=== PATIENT | female | born 1925 | race Caucasian/White ===

== ENCOUNTER 2016-07-25 10:04 | Emergency (ER) | payer MEDICARE, OTHER ==
[~2016-07-25] VITALS: Ht 162.6 cm; Wt 54.1 kg
[2016-07-25 10:05] VITALS: TEMP 97.7; Ht 162.6 cm; Wt 54.1 kg
--- OUTSIDE RECORDS SUMMARY | 2016-07-25 10:09 | XMS REPORT | Referral Summary ---
Author Author [facility] Organization [facility] Address Unknown Phone Unavailable Care Team Providers Care Correctional Casework Specialist Name Role Phone Vladislav Fisher Primary Care Physician [phone] Encounter VC Date(s): 08/27/15 - 08/27/15 [facility], [address] [place] [address] Discharge Diagnosis: Memory loss Discharge Diagnosis: Weight loss, unintentional Discharge Diagnosis: Abdominal pain Discharge Disposition: 01-Home or Self Care Attending Physician: Jaclyn Fisher DO Vital Signs Most recent to 1 oldest [Reference Range]: Peripheral Pulse 72 bpm Rate [60-100 bpm] (08/27/15 1:23 PM) Respiratory Rate 18 br/min [14-20 br/min] (08/27/15 1:23 PM) Blood Pressure 144/90 mmHg [90-140/60-90 mmHg] *HI* (08/27/15 1:23 PM) SpO2 92 % (08/27/15 1:23 PM) Problem List Condition Effective Dates Status Health Status Informant Atrial Active fibrillation(Confirm ed) Pacemaker(Confirmed) Active Chronic hepatitis Active C(Confirmed) CHF (congestive Active heart failure)(Confirmed) CAD (coronary artery Active disease)(Confirmed) Depression(Confirmed Active ) Diarrhea(Confirmed) Active Gall bladder Active disease(Confirmed) Environmental Active allergies(Confirmed) Glaucoma(Confirmed) Active Warfarin Active anticoagulation(Conf irmed) Hx of Active cholecystectomy(Conf irmed) Personal history of Active breast cancer(Confirmed) Hypertension(Confirm Active ed) Cancer of the skin, Active basal cell(Confirmed) Memory Active impairment(Confirmed ) Osteoarthritis(Confi Active rmed) Primary biliary Active cirrhosis(Confirmed) Keratosis, Active seborrheic(Confirmed ) Weight loss, Active unintentional(Confir med) Allergies, Adverse Reactions, Alerts No Known Medication Allergies Medications atenolol 25 mg oral tablet 25 mg 1 tabs, Oral, BID, # 180 tabs, 3 Refill(s), Pharmacy: [id number], 1 tabs Oral BID Start Date: 02/05/15 Status: Ordered digoxin 125 mcg (0.125 mg) oral tablet 125 mcg 1 tabs, Oral, Daily, # 30 tabs, 0 Refill(s) Start Date: 01/26/15 Status: Ordered nystatin 100,000 units/g topical cream 1 janel, Topical, BID, # 30 g, 1 Refill(s), Pharmacy: [facility] #[id number] Start Date: 05/26/15 Status: Ordered ursodiol 250 mg oral tablet 250 mg 1 tabs, Oral, BID, with food, # 270 tabs, 3 Refill(s), [facility] [id number], 1 tabs Oral TID,Instr:with food Start Date: 02/05/15 Status: Ordered warfarin 2.5 mg oral tablet 2.5 mg 1 tabs, Oral, Daily, # 30 tabs, 6 Refill(s), Pharmacy: [facility] # [id number], 1 tabs Oral Daily Start Date: 08/03/15 Status: Ordered Results Coagulation Most recent to 1 oldest [Reference Range]: PT Venous (08/27/15 2:02 PM) INR [0.8-1.2] 2.5 1 *HI* (08/27/15 2:02 PM) 1Result Comment: Normal (no anticoagulant): 0.8 - 1.2 Units Routine Therapeutic Range: 2.0 - 3.0 Units High Risk Therapeutic Range: 2.5 - 3.5 Units Immunizations No data available for this section Procedures Procedure Date Related Diagnosis Body Site Biopsy of liver Cataract extraction Pacemaker Tonsillectomy and adenoidectomy Social History Social History Type Response Smoking Status Never smoker Assessment and Plan Extracted from: Title: Office Visit Note Author: Jaclyn Fisher DO Date: 08/27/15 Assessment/Plan Abdominal pain We discussed the patient should try the probiotic and if this does not help she can trysome Zantac to see if that will help with things. We discussed that we can't say for sure what's happening and that she does not wish to pursue any further investigation. She can try some heat on her abdomen if it is particularly bothersome to see if that would help. We discussed maintaining a healthy diet. Ordered: Office Visit Level 4 Est 64303 Afib PT/INR today. Continue current medication regimen. Ordered: Office Visit Level 4 Est 10893 Memory loss We discussed Aricept or Namenda. They will discuss with family and let us know if they would like to initiate one of these medications. If they would like to initiate one of these medications we will see them 6 weeks after starting the medicine. Ordered: Office Visit Level 4 Est 23262 Weight loss, unintentional This has seemed to stabilize. Continue working on diet. Return to clinic in 6 months. Ordered: Office Visit Level 4 Est 88236
--- OUTSIDE RECORDS SUMMARY | 2016-07-25 10:09 | XMS REPORT | Referral Summary ---
Author Author [facility] Organization [facility], [facility] Address Unknown Phone Unavailable Care Team Providers Care Courier Delivery Driver Name Role Phone Vladislav Fisher Primary Care Physician [phone] Encounter VC Date(s): 03/26/15 - 03/26/15 [facility], [address] [place] [address] Discharge Diagnosis: Abdominal pain, acute, right lower quadrant Discharge Diagnosis: Continued lumbar pain Discharge Disposition: 01-Home or Self Care Attending Physician: Oral Barboza APRN Admitting Physician: Oral Barboza APRN Referring Physician: Jaclyn Fisher DO Vital Signs Most recent to 1 oldest [Reference Range]: Peripheral Pulse 54 bpm Rate [60-100 bpm] *LOW* (03/26/15 8:55 AM) Blood Pressure 142/86 mmHg [90-140/60-90 mmHg] *HI* (03/26/15 8:55 AM) SpO2 93 % (03/26/15 8:55 AM) Problem List Condition Effective Dates Status Health Status Informant Atrial Active fibrillation(Confirm ed) Pacemaker(Confirmed) Active Chronic hepatitis Active C(Confirmed) CHF (congestive Active heart failure)(Confirmed) CAD (coronary artery Active disease)(Confirmed) Depression(Confirmed Active ) Gall bladder Active disease(Confirmed) Environmental Active allergies(Confirmed) Glaucoma(Confirmed) Active Hx of Active cholecystectomy(Conf irmed) Personal history [...] BID, # 180 tabs, 3 Refill(s), Pharmacy: [facility] [id number], 1 tabs Oral BID Start Date: 02/05/15 Status: Ordered digoxin 125 mcg (0.125 mg) oral tablet 125 mcg 1 tabs, Oral, Daily, # 30 tabs, 0 Refill(s) Start Date: 01/26/15 Status: Ordered ursodiol 250 mg oral tablet 250 mg 1 tabs, Oral, TID, with food, # 270 tabs, 3 Refill(s), Pharmacy: [facility] [id number], 1 tabs Oral TID,Instr:with food Start Date: 02/05/15 Status: Ordered warfarin 2.5 mg oral tablet See Instructions, as directed, 0 Refill(s) Start Date: 01/26/15 Status: Ordered Results Hematology Most recent to 1 oldest [Reference Range]: WBC [4.8-10.8 7.7 10*3/uL 10*3/uL] (03/26/15 10:40 AM) RBC [4.00-5.20] 4.86 (03/26/15 10:40 AM) Hgb [12.0-16.0 14.8 gm/dL gm/dL] (03/26/15 10:40 AM) Hct [37.0-47.0 %] 46.0 % (03/26/15 10:40 AM) MCV [82.0-99.0 fL] 94.7 fL (03/26/15 10:40 AM) MCH [27.0-32.0 pg] 30.5 pg (03/26/15 10:40 AM) MCHC [32.0-36.0 32.2 gm/dL gm/dL] (03/26/15 10:40 AM) RDW [11.5-14.5 %] 14.7 % *HI* (03/26/15 10:40 AM) Platelet [150-400 93 10*3/uL 10*3/uL] *LOW* (03/26/15 10:40 AM) MPV [8.8-14.8 fL] 11.8 fL (03/26/15 10:40 AM) Immature 0.1 % Granulocytes (03/26/15 10:40 AM) [0.0-1.0 %] Neutrophils [51-75 65 % %] (03/26/15 10:40 AM) Lymphocytes [20-46 21 % %] (03/26/15 10:40 AM) Monocytes [4-11 %] 11 % (03/26/15 10:40 AM) Eosinophils [0-4 %] 2 % (03/26/15 10:40 AM) Basophils [0-2 %] 0 % (03/26/15 10:40 AM) Neutro Absolute 5.04 10*3 [1.90-7.00 10*3] (03/26/15 10:40 AM) Lymph Absolute 1.65 10*3 [0.80-3.30 10*3] (03/26/15 10:40 AM) [place] Absolute 0.88 10*3 [0.30-1.00 10*3] (03/26/15 10:40 AM) Eos Absolute 0.12 10*3 [0.00-0.50 10*3] (03/26/15 10:40 AM) Baso Absolute 0.03 10*3 [0.00-0.20 10*3] (03/26/15 10:40 AM) Immunizations No data available for this section Procedures Procedure Date Related Diagnosis Body Site Biopsy of liver Cataract extraction Pacemaker Tonsillectomy and adenoidectomy Social History Social History Type Response Smoking Status Never smoker Assessment and Plan No data available for this section
--- OUTSIDE RECORDS SUMMARY | 2016-07-25 10:09 | XMS REPORT | Referral Summary ---
Author Author [facility] Organization [facility] Address Unknown Phone Unavailable Care Team Providers Care Fisher Terrapin Name Role Phone Vladislav Fisher Primary Care Physician [phone] Encounter VC Date(s): 02/23/15 - 02/23/15 [facility], [address] [place] [address] Discharge Diagnosis: Weight loss, unintentional Discharge Diagnosis: Atrial fibrillation Discharge Disposition: 01-Home or Self Care Attending Physician: Jaclyn Fisher DO Admitting Physician: Jaclyn Fisher DO Vital Signs Most recent to 1 oldest [Reference Range]: Temperature Tympanic 36.9 degC [36.6-38.1 degC] (02/23/15 1:33 PM) Peripheral Pulse 62 bpm Rate [60-100 bpm] (02/23/15 1:33 PM) Respiratory Rate 16 br/min [14-20 br/min] (02/23/15 1:33 PM) Blood Pressure 120/68 mmHg [90-140/60-90 mmHg] (02/23/15 1:33 PM) SpO2 97 % (02/23/15 1:33 PM) Problem List Condition Effective Dates Status Health Status Informant Atrial Active fibrillation(Confirm ed) Pacemaker(Confirmed) Active Chronic hepatitis Active C(Confirmed) CAD (coronary artery Active disease)(Confirmed) Depression(Confirmed Active ) Gall bladder Active disease(Confirmed) Environmental Active allergies(Confirmed) Personal history of Active breast cancer(Confirmed) Hypertension(Confirm Active ed) Memory Active impairment(Confirmed ) Osteoarthritis(Confi Active rmed) Weight loss, Active unintentional(Confir med) Allergies, Adverse Reactions, Alerts No Known Medication Allergies Medications atenolol 25 mg oral tablet 25 mg 1 tabs, Oral, BID, # 180 tabs, 3 Refill(s), Pharmacy: [facility] [id number], 1 tabs Oral BID Start Date: 02/05/15 Status: Ordered digoxin 125 mcg (0.125 mg) oral tablet 125 mcg 1 tabs, Oral, Daily, # 30 tabs, 0 Refill(s) Start Date: 01/26/15 Status: Ordered lidocaine 5% topical film 1 patches, Topical, Daily, # 30 patches, 0 Refill(s), Pharmacy: [facility] [id number] Start Date: 01/26/15 Status: Ordered ursodiol 250 mg oral tablet 250 mg 1 tabs, Oral, TID, with food, # 270 tabs, 3 Refill(s), Pharmacy: [facility] [id number], 1 tabs Oral TID,Instr:with food Start Date: 02/05/15 Status: Ordered warfarin 2.5 mg oral tablet See Instructions, as directed, 0 Refill(s) Start Date: 01/26/15 Status: Ordered Results Hematology Most recent to 1 oldest [Reference Range]: WBC [4.8-10.8 6.4 10*3/uL 10*3/uL] (02/23/15 2:42 PM) RBC [4.00-5.20] 4.87 (02/23/15 2:42 PM) Hgb [12.0-16.0 14.8 gm/dL gm/dL] (02/23/15 2:42 PM) Hct [37.0-47.0 %] 44.8 % (02/23/15 2:42 PM) MCV [82.0-99.0 fL] 92.0 fL (02/23/15 2:42 PM) MCH [27.0-32.0 pg] 30.4 pg (02/23/15 2:42 PM) MCHC [32.0-36.0 33.0 gm/dL gm/dL] (02/23/15 2:42 PM) RDW [11.5-14.5 %] 15.6 % *HI* (02/23/15 2:42 PM) Platelet [150-400 91 10*3/uL 1 10*3/uL] *LOW* (02/23/15 2:42 PM) MPV [8.8-14.8 fL] 12.5 fL (02/23/15 2:42 PM) Neutrophils [51-75 66 % %] (02/23/15 2:42 PM) Lymphocytes [20-46 24 % %] (02/23/15 2:42 PM) Monocytes [4-11 %] 7 % (02/23/15 2:42 PM) Eosinophils [0-4 %] 2 % (02/23/15 2:42 PM) Basophils [0-2 %] 1 % (02/23/15 2:42 PM) Neutro Absolute 4.22 10*3 [1.90-7.00 10*3] (02/23/15 2:42 PM) Lymph Absolute 1.54 10*3 [0.80-3.30 10*3] (02/23/15 2:42 PM) [place] Absolute 0.45 10*3 [0.30-1.00 10*3] (02/23/15 2:42 PM) Eos Absolute 0.13 10*3 [0.00-0.50 10*3] (02/23/15 2:42 PM) Baso Absolute 0.06 10*3 [0.00-0.20 10*3] (02/23/15 2:42 PM) Differential Manual *ABN* (02/23/15 2:42 PM) 1Result Comment: Platelet count inaccurate due to platelet clumping on smear. Platelets appear adequate. Chemistry Most recent to 1 oldest [Reference Range]: Sodium Lvl [135-144 145 mEq/L mEq/L] *HI* (02/23/15 2:42 PM) Potassium Lvl 4.2 mEq/L [3.5-5.2 mEq/L] (02/23/15 2:42 PM) Chloride [99-111 108 mEq/L mEq/L] (02/23/15 2:42 PM) CO2 [22-31 mEq/L] 31 mEq/L (02/23/15 2:42 PM) AGAP [3-20] 6 (02/23/15 2:42 PM) BUN [10-20 mg/dL] 16 mg/dL (02/23/15 2:42 PM) Glucose Lvl [70-99 110 mg/dL mg/dL] *HI* (02/23/15 2:42 PM) Creatinine Lvl 0.76 mg/dL [0.57-1.11 mg/dL] (02/23/15 2:42 PM) eGFR [>60 mL/min] >60 mL/min 1 (02/23/15 2:42 PM) Calcium Lvl 9.2 mg/dL [8.9-10.5 mg/dL] (02/23/15 2:42 PM) Albumin Lvl [3.4-4.8 3.9 gm/dL gm/dL] (02/23/15 2:42 PM) Total Protein 7.2 gm/dL [6.2-8.1 gm/dL] (02/23/15 2:42 PM) Globulin [1.8-4.0 3.3 gm/dL gm/dL] (02/23/15 2:42 PM) ALT [0-55 U/L] 9 U/L (02/23/15 2:42 PM) AST [5-34 U/L] 22 U/L (02/23/15 2:42 PM) Alk Phos [40-150 106 U/L U/L] (02/23/15 2:42 PM) Bili Total [0.2-1.2 0.8 mg/dL mg/dL] (02/23/15 2:42 PM) 1Result Comment: Multiply eGFR results by 1.21 for race. Therapeutic Drug Monitoring Most recent to 1 oldest [Reference Range]: Digoxin Lvl [0.8-2.0 0.5 ng/mL ng/mL] *LOW* (02/23/15 2:42 PM) Immunizations No data available for this section Procedures Procedure Date Related Diagnosis Body Site Biopsy of liver Cataract extraction Pacemaker Tonsillectomy and adenoidectomy Social History Social History Type Response Smoking Status Never smoker Assessment and Plan Extracted from: Title: Office Visit Note Author: Jaclyn Fisher DO Date: 02/23/15 Assessment/Plan Atrial fibrillation Digoxin level today. Will continue current meds for this time. Requesting records. Ordered: Office Visit Level 4 Est 10914 High risk medication use CBC, CMP, dig level. Ordered: CBC w/ Differential Comprehensive Metabolic Panel Digoxin Level Office Visit Level 4 Est 27388 Primary biliary cirrhosis We'll refer patient to GI. Based on records review from Dr. Martines in [place], patient has primary biliary cirrhosis. She was on ursodiol and her liver function testing stabilized. Ordered: Internal Referral to Gastroenterology Office Visit Level 4 Est 75939 Weight loss, unintentional This is stabilizing, we'll continue to monitor. We will see if there are any recommendations from a GI standpoint. Ordered: Office Visit Level 4 Est 58830 Referrals to Other Providers primary biliary cirrhosis, referred to: Clarisa Bajwa III, MD Referred by: Jaclyn Fisher DO
--- OUTSIDE RECORDS SUMMARY | 2016-07-25 10:09 | XMS REPORT | Referral Summary ---
Author Author [facility] Organization [facility] Address Unknown Phone Unavailable Care Team Providers Care Technology Internship Name Role Phone Vladislav Fisher Primary Care Physician [phone] Encounter [facility] [id number] Date(s): 06/02/15 - 06/02/15 [facility] [address] [place], [place] [address] Discharge Diagnosis: Weight loss, unintentional Discharge Diagnosis: Memory impairment Discharge Diagnosis: Warfarin anticoagulation Discharge Diagnosis: Atrial fibrillation Discharge Diagnosis: Diarrhea Discharge Diagnosis: Primary biliary cirrhosis Discharge Disposition: 01-Home or Self Care Attending Physician: Gina Langley Admitting Physician: Gina Langley Vital Signs Most recent to 1 oldest [Reference Range]: Peripheral Pulse 61 bpm Rate [60-100 bpm] (06/02/15 12:56 PM) Blood Pressure 129/72 mmHg [90-140/60-90 mmHg] (06/02/15 12:56 PM) Problem List Condition Effective Dates Status [...] BID, # 180 tabs, 3 Refill(s), Pharmacy: [facility] [id number], 1 tabs Oral BID Start Date: 02/05/15 Status: Ordered digoxin 125 mcg (0.125 mg) oral tablet 125 mcg 1 tabs, Oral, Daily, # 30 tabs, 0 Refill(s) Start Date: 01/26/15 Status: Ordered nystatin 100,000 units/g topical cream 1 janel, Topical, BID, # 30 g, 1 Refill(s), Pharmacy: [facility] #[id number] Start Date: 05/26/15 Status: Ordered ursodiol 250 mg oral tablet 250 mg 1 tabs, Oral, BID, with food, # 270 tabs, 3 Refill(s), Pharmacy: [facility] [id number], 1 tabs Oral TID,Instr:with food Start Date: 02/05/15 Status: Ordered warfarin 2.5 mg oral tablet See Instructions, as directed, 0 Refill(s) Start Date: 01/26/15 Status: Ordered Results No data available for this section Immunizations No data available for this section Procedures Procedure Date Related Diagnosis Body Site Biopsy of liver Cataract extraction Pacemaker Tonsillectomy and adenoidectomy Social History Social History Type Response Smoking Status Never smoker Assessment and Plan Extracted from: Title: Office Visit Note Author: Gina Langley Date: 06/02/15 Assessment/Plan 1.Diarrhea 2.Memory impairment 3.Weight loss, unintentional 4.Primary biliary cirrhosis 5.Atrial fibrillation Warfarin anticoagulation This a very pleasant 89-year-old female with known history of weight loss, diarrhea, anorexia and PBC. She returns today for follow-up and reports that she is doing much better with taking half dose of Imodium daily which has improved her diarrhea. Apparently she is not having as much. She still is challenged with eating and we encouraged her to eat as well as taken supplements. She is continue her current medical regimen as outline. We're encouraged that her CT scan did not show any significant pathology. She and her son are welcome to call if they have any significant problems or symptoms that are concerning to them. Return to clinic as needed. Dr. Bajwa came into the roomand talked to the patient. We reviewed the medications, laboratory testing, proceduresand previous records. Also discussed the current condition and symptoms. We feel that the patient is overall stable from a gastrointestinalstandpoint .
--- OUTSIDE RECORDS SUMMARY | 2016-07-25 10:09 | XMS REPORT | Referral Summary ---
Author Author [facility] Organization [facility] Address Unknown Phone Unavailable Care Team Providers Care Bronze Chaser Name Role Phone Vladislav Fisher Primary Care Physician [phone] Encounter [facility] [id number] Date(s): 05/05/15 - 05/05/15 [facility] [address] [place], [place] [address] Discharge Diagnosis: Abnormal weight loss Discharge Diagnosis: Primary biliary cirrhosis Discharge Diagnosis: Diarrhea Discharge Diagnosis: Belching Discharge Disposition: 01-Home or Self Care Attending Physician: Clarisa Bajwa III, MD Admitting Physician: Clarisa Bajwa III, MD Referring Physician: Jaclyn Fisher DO Vital Signs Most recent to 1 oldest [Reference Range]: Peripheral Pulse 68 bpm Rate [60-100 bpm] (05/05/15 1:31 PM) Blood Pressure 124/84 mmHg [90-140/60-90 mmHg] (05/05/15 1:31 PM) Problem List Condition Effective Dates Status [...] BID, # 180 tabs, 3 Refill(s), Pharmacy: [facility] [id number], 1 tabs Oral BID Start Date: 02/05/15 Status: Ordered digoxin 125 mcg (0.125 mg) oral tablet 125 mcg 1 tabs, Oral, Daily, # 30 tabs, 0 Refill(s) Start Date: 01/26/15 Status: Ordered nystatin 100,000 units/g topical cream 1 janel, Topical, BID, # 30 g, 1 Refill(s), Pharmacy: [facility] [id number] Start Date: 04/13/15 Status: Ordered ursodiol 250 mg oral tablet 250 mg 1 tabs, Oral, BID, with food, # 270 tabs, 3 Refill(s), Pharmacy: [facility] [id number], 1 tabs Oral TID,Instr:with food Start Date: [...] Smoking Status Never smoker Assessment and Plan Referrals to Other Providers Referred by: Clarisa Bajwa III, MD
--- OUTSIDE RECORDS SUMMARY | 2016-07-25 10:09 | XMS REPORT | Referral Summary ---
Author Author [facility], [facility] Organization [facility] Address Unknown Phone Unavailable Care Team Providers Care Construction And Maintenance Inspector Name Role Phone Vladislav Fisher Primary Care Physician [phone] Encounter VC Date(s): 01/26/15 - 01/26/15 [facility] [address] [place] [phone] Discharge Diagnosis: Depression Discharge Diagnosis: Memory impairment Discharge Diagnosis: Gall bladder disease Discharge Diagnosis: Osteoarthritis Discharge Diagnosis: Chronic hepatitis C Discharge Diagnosis: Weight loss, unintentional Discharge Diagnosis: Environmental allergies Discharge Diagnosis: Hypertension Discharge Disposition: 01-Home or Self Care Attending Physician: Jaclyn Fisher DO Admitting Physician: Jaclyn Fisher DO Vital Signs Most recent to 1 oldest [Reference Range]: Temperature Tympanic 36.8 degC [36.6-38.1 degC] (01/26/15 1:58 PM) Peripheral Pulse 62 bpm Rate [60-100 bpm] (01/26/15 1:58 PM) Respiratory Rate 16 br/min [14-20 br/min] (01/26/15 1:58 PM) Blood Pressure 148/78 mmHg [90-140/60-90 mmHg] *HI* (01/26/15 1:58 PM) SpO2 95 % (01/26/15 1:58 PM) Problem List Condition Effective Dates Status [...] BID, # 180 tabs, 3 Refill(s), Pharmacy: [id number], 1 tabs Oral BID Start Date: 02/05/15 Status: Ordered digoxin 125 mcg (0.125 mg) oral tablet 125 mcg 1 tabs, Oral, Daily, # 30 tabs, 0 Refill(s) Start Date: 01/26/15 Status: Ordered nystatin 100,000 units/g topical cream 1 janel, Topical, BID, # 30 g, 1 Refill(s), Pharmacy: [facility] #[id number] Start Date: 05/26/15 Status: Ordered ursodiol 250 mg oral tablet 250 mg 1 tabs, Oral, BID, with food, # 270 tabs, 3 Refill(s), Pharmacy: [id number], 1 tabs Oral TID,Instr:with food Start Date: 02/05/15 Status: Ordered warfarin 2.5 mg oral tablet 2.5 mg 1 tabs, Oral, Daily, # 30 tabs, 6 Refill(s), Pharmacy: [facility] # [id number], 1 tabs Oral Daily Start Date: 08/03/15 Status: Ordered Results Coagulation Most recent to 1 oldest [Reference Range]: PT Venous (01/26/15 3:56 PM) INR [0.8-1.2] 4.7 1 *HHI* (01/26/15 3:56 PM) 1Result Comment: Critical INR rechecked and called to Shannan/Dr. Fisher @ [id number] Normal (no anticoagulant): 0.8 - 1.2 Units Routine Therapeutic Range: 2.0 - 3.0 Units High Risk Therapeutic Range: 2.5 - 3.5 Units Immunizations No data available for this section Procedures Procedure Date Related Diagnosis Body Site Biopsy of liver Cataract extraction Pacemaker Tonsillectomy and adenoidectomy Social History Social History Type Response Smoking Status Never smoker Assessment and Plan Extracted from: Title: Ambulatory Patient Education Author: Jaclny Fisher DO Date: Pharmacology Warfarin: What You Need to Know Warfarin is an anticoagulant. Anticoagulants help prevent the formation of blood clots. They also help stop the growth of blood clots. Warfarin is sometimes referred to as a "blood thinner." Normally, when body tissues are cut or damaged, the blood clots in order to prevent blood loss. Sometimes clots form inside your blood vessels and obstruct the flow of blood through your circulatory system (thrombosis). These clots may travel through your bloodstream and become lodged in smaller blood vessels in your brain, which can cause a stroke, or in your lungs (pulmonary embolism). WHO SHOULD USE WARFARIN? Warfarin is prescribed for people at risk of developing harmful blood clots: People with surgically implanted mechanical heart valves, irregular heart rhythms called atrial fibrillation, and certain clotting disorders. People who have developed harmful blood clotting in the past, including those who have had a stroke or a pulmonary embolism, or thrombosis in their legs (deep vein thrombosis [DVT]). People with an existing blood clot, such as a pulmonary embolism. WARFARIN DOSING Warfarin tablets come in different strengths. Each tablet strength is a different color, with the amount of warfarin (in milligrams) clearly printed on the tablet. If the color of your tablet is different than usual when you receive a new prescription, report it immediately to your pharmacist or health care provider. WARFARIN MONITORING The goal of warfarin therapy is to lessen the clotting tendency of blood but not prevent clotting completely. Your health care provider will monitor the anticoagulation effect of warfarin closely and adjust your dose as needed. For your safety, blood tests called prothrombin time (PT) or international normalized ratio (INR) are used to measure the effects of warfarin. Both of these tests can be done with a finger stick or a blood draw. The longer it takes the blood to clot, the higher the PT or INR. Your health care provider will inform you of your "target" PT or INR range. If, at any time , your PT or INR is above the target range, there is a risk of bleeding. If your PT or INR is below the target range, there is a risk of clotting. Whether you are started on warfarin while you are in the hospital or in your health care provider's office, you will need to have your PT or INR checked within one week of starting the medicine. Initially, some people are asked to have their PT or INR checked as much as twice a week. Once you are on a stable maintenance dose, the PT or INR is checked less often, usually once every 2 to 4 weeks. The warfarin dose may be adjusted if the PT or INR is not within the target range. It is important to keep all laboratory and health care provider follow-up appointments. Not keeping appointments could result in a chronic or permanent injury, pain, or disability because warfarin is a medicine that requires close monitoring. WHAT ARE THE SIDE EFFECTS OF WARFARIN? Too much warfarin can cause bleeding (hemorrhage) from any part of the body. This may include bleeding from the gums, blood in the urine, bloody or dark stools, a nosebleed that is not easily stopped, coughing up blood, or vomiting blood. Too little warfarin can increase the risk of blood clots. Too little or too much warfarin can also increase the risk of a stroke. Warfarin use may cause a skin rash or irritation, an unusual fever, continual nausea or stomach upset, or severe pain in your joints or back. SPECIAL PRECAUTIONS WHILE TAKING WARFARIN Warfarin should be taken exactly as directed. It is very important to take warfarin as directed since bleeding or blood clots could result in chronic or permanent injury, pain, or disability. Take your medicine at the same time every day. If you forget to take your dose, you can take it if it is within 6 hours of when it was due. Do not change the dose of warfarin on your own to make up for missed or extra doses. If you miss more than 2 doses in a row, you should contact your health care provider for advice. Avoid situations that cause bleeding. You may have a tendency to bleed more easily than usual while taking warfarin. The following actions can limit bleeding: Using a softer toothbrush. Flossing with waxed floss rather than unwaxed floss. Shaving with an electric razor rather than a blade. Limiting the use of sharp objects. Avoiding potentially harmful activities, such as contact sports. Warfarin and or Warfarin is not advised during the first trimester of due to an increased risk of defects. In certain situations, a woman may take warfarin after her first trimester of . A woman who becomes or plans to become while taking warfarin should notify her health care provider immediately. Although warfarin does not pass into breast milk, a woman who wishes to breastfeed while taking warfarin should also consult with her health care provider. Alcohol, Smoking, and Illicit Drug Use Alcohol affects how warfarin works in the body. It is best to avoid alcoholic drinks or consume very small amounts while taking warfarin. In general , alcohol intake should be limited to 1 oz (30 mL) of liquor, 6 oz (180 mL) of wine, or 12 oz (360 mL) of beer each day. Notify your health care provider if you change your alcohol intake. Smoking affects how warfarin works. It is best to avoid smoking while taking warfarin. Notify your health care provider if you change your smoking habits. It is best to avoid all illicit drugs while taking warfarin since there are few studies that show how warfarin interacts with these drugs. Other Medicines and Dietary Supplements Many prescription and ragi-ppj-owiuwvh medicines can interfere with warfarin. Be sure all of your health care providers know you are taking warfarin. Notify your health care provider who prescribed warfarin for you or your pharmacist before starting or stopping any new medicines, including eoux-soi-xhoawel vitamins, dietary supplements, and pain medicines. Your warfarin dose may need to be adjusted. Some common ylep-jkp-cqykjeq medicines that may increase the risk of bleeding while taking warfarin include: Acetaminophen. Aspirin. Nonsteroidal anti-inflammatory medicines (NSAIDs), such as ibuprofen or naproxen. Vitamin E. Dietary Considerations Foods that have moderate or high amounts of vitamin K can interfere with warfarin. Avoid major changes in your diet or notify your health care provider before changing your diet. Eat a consistent amount of foods that have moderate or high amounts of vitamin K. Eating less foods containing vitamin K can increase the risk of bleeding. Eating more foods containing vitamin K can increase the risk of blood clots. Additional questions about dietary considerations can be discussed with a dietitian. Foods that are very high in vitamin K: Greens, such as Thai chard and beet, giuseppe, mustard, or turnip greens ( fresh or frozen, cooked). Kale (fresh or frozen, cooked). Parsley (raw). Spinach (cooked). Foods that are high in vitamin K: Asparagus (frozen, cooked). Beans, green (frozen, cooked). Broccoli. Bok nora (cooked). [place] sprouts (fresh or frozen, cooked). Cabbage (cooked). Coleslaw. Foods that are moderately high in vitamin K: Blueberries. Black-eyed peas. Endive (raw). Green leaf lettuce (raw). Green scallions (raw). Kale (raw). Okra (frozen, cooked). Plantains (fried). Yohannes lettuce (raw). Sauerkraut (canned). Spinach (raw). CALL YOUR CLINIC OR HEALTH CARE PROVIDER IF YOU: Plan to have any surgery or procedure. Feel sick, especially if you have diarrhea or vomiting. Experience or anticipate any major changes in your diet. Start or stop a prescription or tcmz-eqh-krmxmwu medicine. Become, plan to become, or think you may be . Are having heavier than usual menstrual periods. Have had a fall, accident, or any symptoms of bleeding or unusual bruising. Develop an unusual fever. CALL 911 IN THE [place] OR GO TO THE EMERGENCY DEPARTMENT IF YOU: Think you may be having an allergic reaction to warfarin. The signs of an allergic reaction could include itching, rash, hives, swelling, chest tightness , or trouble breathing. See signs of blood in your urine. The signs could include reddish, pinkish , or tea-colored urine. See signs of blood in your stools. The signs could include bright red or black stools. Vomit or cough up blood. In these instances, the blood could have either a bright red or a "coffee-grounds" appearance. Have bleeding that will not stop after applying pressure for 30 minutes such as cuts, nosebleeds, or other injuries. Have severe pain in your joints or back. Have a new and severe headache. Have sudden weakness or numbness of your face, arm, or leg, especially on one side of your body. Have sudden confusion or trouble understanding. Have sudden trouble seeing in one or both eyes. Have sudden trouble walking, dizziness, loss of balance, or coordination. Have trouble speaking or understanding (aphasia). Document Released: 03/27/2006 Document Revised: 08/11/2014 Document Reviewed: ExitCare Patient Information 2015 [employer]. This information is not intended to replace advice given to you by your health care provider. Make sure you discuss any questions you have with your health care provider. No follow up information was provided. Extracted from: Title: Office Visit Note Author: Jaclyn Fisher DO Date: 01/26/15 Assessment/Plan Afib We'll get PT INR today. We'll make recommendations based on results. Ordered: Office Visit Level 4 New 47030 PT Chronic hepatitis C We will request records today. I will have them return to clinic in 1 month and hopefully at this time I will have records and we will be able to further discuss a plan. Ordered: Office Visit Level 4 New 13011 Depression This is stable. Environmental allergies Discussed multiple options with the patient. We discussed that this may be part of her nausea issue. I offered her Flonase as a safe option with her other medications and current medical problems. She declines at this time. I advised them that it was wghi-tdp-ymrcakm now and that they could pick it up if they desired. Gall bladder disease We will request records and make further recommendations after review of these records. Patient is to return to clinic in 1 month. Hypertension Stable, continue current medication. Lab recommendations will be made after review of records. Memory impairment None of her medications seem to be the likely culprit for this. It is difficult to make further recommendations without a complete history from record review. We will discuss this again at next visit in 1 month. Osteoarthritis We'll try the lidocaine patch on her left hip. This is the safest option for her with her liver disease combined with her history of coronary artery disease and her need for warfarin. We also discussed capsaicin cream as another option for her. We will reevaluate when she returns in one month Ordered: Office Visit Level 4 New 08646 Weight loss, unintentional Discussed multiple options for this including starting an H2 or PPI. Patient was reluctant to start a new medication. She can continue Imodium as needed and should start supplementing with a meal supplement. We will reevaluate this when she returns in one month. Ordered: Office Visit Level 4 New 79106 Orders: lidocaine topical, 1 patches, Topical, Daily, # 30 patches, 0 Refill(s ), Pharmacy: [id number]
--- OUTSIDE RECORDS SUMMARY | 2016-07-25 10:09 | XMS REPORT | Referral Summary ---
Author Author [facility], [facility] Organization [facility] Address Unknown Phone Unavailable Care Team Providers Care Land Commissioner Name Role Phone Vladislav Fisher Primary Care Physician [phone] Encounter VC Date(s): 12/30/15 - 12/30/15 [facility], [address] [place] [phone] Discharge Diagnosis: Encounter for immunization Discharge Diagnosis: Anticoagulant long-term use Discharge Diagnosis: Dementia Discharge Disposition: 01-Home or Self Care Attending Physician: Jaclyn Fisher DO Admitting Physician: Jaclyn Fisher DO Vital Signs Most recent to 1 oldest [Reference Range]: Temperature Tympanic 36.8 degC [36.6-38.1 degC] (12/30/15 1:39 PM) Peripheral Pulse 60 bpm Rate [60-100 bpm] (12/30/15 1:39 PM) Respiratory Rate 16 br/min [14-20 br/min] (12/30/15 1:39 PM) Blood Pressure 130/72 mmHg [90-140/60-90 mmHg] (12/30/15 1:39 PM) SpO2 93 % (12/30/15 1:39 PM) Problem List Condition Effective Dates Status [...] Active basal cell(Confirmed) Memory Active impairment(Confirmed ) Dementia(Confirmed) Active Osteoarthritis(Confi Active rmed) Primary biliary Active cirrhosis(Confirmed) Keratosis, Active seborrheic(Confirmed ) Weight loss, Active unintentional(Confir med) Allergies, Adverse Reactions, Alerts No Known Medication Allergies Medications Aricept 5 mg oral tablet 5 mg 1 tabs, Oral, Bedtime (once a day), # 30 tabs, 0 Refill(s), Pharmacy: [facility] #[id number], 1 tabs Oral Bedtime (once a day) Start Date: 12/30/15 Status: Ordered atenolol 25 mg oral tablet 25 mg 1 tabs, Oral, BID, # 180 tabs, 1 Refill(s), Pharmacy: [facility] # [id number], 1 tabs Oral BID Start Date: 08/31/15 Status: Ordered digoxin 125 mcg (0.125 mg) oral tablet 125 mcg 1 tabs, Oral, Daily, # 90 tabs, 1 Refill(s), Pharmacy: [facility] #[id number], 1 tabs Oral Daily Start Date: 08/31/15 Status: Ordered nystatin 100,000 units/g topical cream 1 janel, Topical, BID, # 30 g, 1 Refill(s), Pharmacy: [facility] #[id number] Start Date: 05/26/15 Status: Ordered ursodiol 250 mg oral tablet 250 mg 1 tabs, Oral, BID, with food, # 270 tabs, 3 Refill(s), Pharmacy: [id number], 1 tabs Oral TID,Instr:with food Start Date: 02/05/15 Status: Ordered warfarin 2.5 mg oral tablet 2.5 mg 1 tabs, Oral, Daily, # 30 tabs, 6 Refill(s), Pharmacy: [facility] # [id number], 1 tabs Oral Daily Start Date: 08/03/15 Status: Ordered Results Coagulation Most recent to 1 oldest [Reference Range]: PT Venous (12/30/15 2:45 PM) INR [0.8-1.2] 2.6 1 *HI* (12/30/15 2:45 PM) 1Result Comment: Normal (no anticoagulant): 0.8 - 1.2 Units Routine Therapeutic Range: 2.0 - 3.0 Units High Risk Therapeutic Range: 2.5 - 3.5 Units Immunizations Vaccine Date Refusal Reason influenza virus vaccine, inactivated 12/30/15 pneumococcal 13-valent conjugate vaccine 12/30/15 Procedures Procedure Date Related Diagnosis Body Site Biopsy of liver Cataract extraction Pacemaker Tonsillectomy and adenoidectomy Social History Social History Type Response Smoking Status Never smoker Assessment and Plan Extracted from: Title: Office Visit Note Author: Jaclyn Fisher DO Date: 12/30/15 Assessment/Plan Anticoagulant long-term use INR today. Ordered: Office Visit Level 4 Est 28712 PT Dementia We again discussed medications for this. We did discuss the patient does definitely qualify for dementia at this time based on SLUMS. They are going to go ahead and try some Aricept and follow up with me in a month to see how she is doing. At that time we'll decide if she needs home health, etc. Ordered: Office Visit Level 4 Est 74871 Encounter for immunization Flu shot provided today as well as Prevnar 13. Ordered: Office Visit Level 4 Est 55032
--- OUTSIDE RECORDS SUMMARY | 2016-07-25 10:09 | XMS REPORT | Referral Summary ---
Author Author [facility], [facility] Organization [facility] Address Unknown Phone Unavailable Care Team Providers Care Tunnel Kiln Operator Name Role Phone Vladislav Fisher Primary Care Physician [phone] Encounter VC Date(s): 05/19/16 - 05/19/16 [facility], [address] [place] [phone] Discharge Diagnosis: Osteoarthritis Discharge Diagnosis: Weight loss, unintentional Discharge Diagnosis: Allergic rhinitis Discharge Diagnosis: Anticoagulated on Coumadin Discharge Diagnosis: Dementia Discharge Disposition: 01-Home or Self Care Attending Physician: Jaclyn Fisher DO Admitting Physician: Jaclyn Fisher DO Vital Signs Most recent to 1 oldest [Reference Range]: Temperature Tympanic 35.7 degC [36.6-38.1 degC] *LOW* (05/19/16 9:27 AM) Peripheral Pulse 62 bpm Rate [60-100 bpm] (05/19/16 9:27 AM) Blood Pressure 142/82 mmHg [90-140/60-90 mmHg] *HI* (05/19/16 9:27 AM) SpO2 98 % (05/19/16 9:27 AM) Problem List Condition Effective Dates Status Health Status Informant Allergic Active rhinitis(Confirmed) Atrial Active fibrillation(Confirm ed) Pacemaker(Confirmed) Active Chronic [...] 1 tabs, Oral, BID, # 180 tabs, 0 Refill(s), Pharmacy: [facility], 1 tabs Oral BID Start Date: 03/08/16 Status: Ordered digoxin 125 mcg (0.125 mg) oral tablet 125 mcg 1 tabs, Oral, Daily, # 90 tabs, 0 Refill(s), Pharmacy: [facility], 1 tabs Oral Daily Start Date: 03/08/16 Status: Ordered donepezil 10 mg oral tablet 10 mg 1 tabs, Oral, Bedtime (once a day), # 90 tabs, 0 Refill(s), Pharmacy: [facility], 1 tabs Oral Bedtime (once a day) Start Date: 05/19/16 Status: Ordered Flasher 5 mg-325 mg oral tablet 1 tabs, Oral, q6hr, as needed for pain, # 60 tabs, 0 Refill(s) Start Date: 05/19/16 Status: Ordered nystatin 100,000 units/g topical cream 1 janel, Topical, BID, # 30 g, 0 Refill(s), Pharmacy: [facility] Start Date: 01/28/16 Status: Ordered ursodiol 250 mg oral tablet 250 mg 1 tabs, Oral, BID, with food, # 270 tabs, 0 Refill(s), Pharmacy: [facility], 1 tabs Oral BID,Instr:with food Start Date: 03/08/16 Status: Ordered warfarin 2.5 mg oral tablet 2.5 mg 1 tabs, Oral, Daily, # 30 tabs, 0 Refill(s), Pharmacy: [facility], 1 tabs Oral Daily Start Date: 03/08/16 Status: Ordered Wheelchair (DME) DME Item wheelchair/daily/lifetime, See Instructions, # 1 Each, 0 Refill(s), Supply Start Date: 01/27/16 Status: Ordered Results No data available for this section Immunizations Given and Recorded Vaccine Date Status Refusal Reason influenza virus vaccine, inactivated 12/30/15 Given pneumococcal 13-valent conjugate vaccine 12/30/15 Given Procedures Procedure Date Related Diagnosis Body Site Biopsy of liver Cataract extraction Pacemaker Tonsillectomy and adenoidectomy Social History Social History Type Response Smoking Status Never smoker Assessment and Plan Extracted from: Title: Office Visit Note Author: Jaclyn Fisher DO Date: 05/19/16 Assessment/Plan Allergic rhinitis Advised them to try Flonase or Nasacort [id number] and let me know if this isn't effective. Ordered: Office Visit Level 4 Est 63272 Anticoagulated on Coumadin Bruising is most likely secondary to having a supratherapeutic INR, patient is to hold for 2 days and then restarted on the 1.25 mg dose on Monday and have her INR rechecked Monday before her dose of medication. Ordered: Office Visit Level 4 Est 80766 PT Dementia We will go ahead and increase her donepezil to10mg and have her return to clinic in 6 weeks for reevaluation. Ordered: Office Visit Level 4 Est 55083 Osteoarthritis At this time we had a lengthy discussion about pain and pain expectations. We will try patient on some as needed Norcoto take sparingly for when the pain is bad. We discussed that there are no disease modifying agents for osteoarthritis and I can't make it better but I can try to help with the pain. Controlled substance agreement was signed today. Patient will return to clinic in 6 weeks. Ordered: Office Visit Level 4 Est 76797 Weight loss, unintentional Continue to monitor closely, we discussed the possibility of adding a medication to help stimulate her appetite the patient wants to try just drinking Ensureand watching her weight. Ordered: Office Visit Level 4 Est 50280
--- OUTSIDE RECORDS SUMMARY | 2016-07-25 10:10 | XMS REPORT | Referral Summary ---
Author Author [facility], Family [facility] Organization [facility] Address Unknown Phone Unavailable Care Team Providers Care Label Drier Name Role Phone Vladislav Fisher Primary Care Physician [phone] Encounter Date(s): 01/26/15 - 01/26/15 [facility] [address] [place] [id number] Discharge Diagnosis: [...] Condition Effective Dates Status Health Status Informant Pacemaker(Confirmed) Active Chronic hepatitis Active C(Confirmed) CAD (coronary artery Active disease)(Confirmed) Depression(Confirmed Active ) Gall bladder Active disease(Confirmed) Environmental Active allergies(Confirmed) Personal history of Active breast cancer(Confirmed) Hypertension(Confirm Active ed) Memory Active impairment(Confirmed ) Osteoarthritis(Confi Active rmed) Weight loss, Active unintentional(Confir med) Allergies, Adverse Reactions, Alerts No Known Medication Allergies Medications atenolol 25 mg oral tablet 25 mg 1 tabs, Oral, BID, 0 Refill(s) Start Date: 01/26/15 Status: Ordered digoxin 125 mcg (0.125 mg) oral tablet 125 mcg 1 tabs, Oral, Daily, # 30 tabs, 0 Refill(s) Start Date: 01/26/15 Status: Ordered lidocaine 5% topical film 1 patches, Topical, Daily, # 30 patches, 0 Refill(s), Pharmacy: [facility] Start Date: 01/26/15 Status: Ordered ursodiol 250 mg oral tablet 250 mg 1 tabs, Oral, TID, with food, # 90 tabs, 0 Refill(s) Start Date: 01/26/15 Status: Ordered warfarin 2.5 mg oral tablet See Instructions, as directed, 0 Refill(s) Start Date: 01/26/15 Status: Ordered Results Coagulation Most recent to 1 oldest [Reference Range]: PT Venous (01/26/15 3:56 PM) INR [0.8-1.2] 4.7 1 *HHI* (01/26/15 3:56 PM) 1Result Comment: Critical INR rechecked and called to Shannan/Dr. Fisher @ 1836 by [facility]. Normal (no anticoagulant): 0.8 - 1.2 Units [...] Extracted from: Title: Ambulatory Patient Education Author: Jaclyn Fisher DO Date: Pharmacology Warfarin: What You [...] Medicines and Dietary Supplements Many prescription and khcc-kis-xkwzeyo medicines can interfere with warfarin. Be sure all of your health care providers know you are taking warfarin. Notify your health care provider who prescribed warfarin for you or your pharmacist before starting or stopping any new medicines, including zgzm-mlw-bgnmcgx vitamins, dietary supplements, and pain medicines. Your warfarin dose may need to be adjusted. Some common frpm-yom-unttbwh medicines that may increase the risk of [...] high in vitamin K: Greens, such as [place] chard and beet, giuseppe, mustard, or turnip greens ( fresh or frozen, cooked). Kale (fresh or frozen, cooked). Parsley (raw). Spinach (cooked). Foods that are high in vitamin K: Asparagus (frozen, cooked). Beans, green (frozen, cooked). Broccoli. Bok nora (cooked). [place] sprouts (fresh or frozen, cooked). Cabbage (cooked). [...] diet. Start or stop a prescription or wrsi-qyo-dxyokby medicine. Become, plan to become, or think [...] Released: 03/27/2006 Document Revised: 08/11/2014 Document Reviewed: [facility] Patient Information 2015 [employer]. This information is not intended to replace [...] results. Ordered: Office Visit Level 4 New 76046 PT Chronic hepatitis C We will request records today. I will have them return to clinic in 1 month and hopefully at this time I will have records and we will be able to further discuss a plan. Ordered: Office Visit Level 4 New 82589 Depression This is stable. Environmental allergies Discussed multiple options with the patient. We discussed that this may be part of her nausea issue. I offered her Flonase as a safe option with her other medications and current medical problems. She declines at this time. I advised them that it was ccwx-nai-zcmrwyj now and that they could pick it [...] month Ordered: Office Visit Level 4 New 35142 Weight loss, unintentional Discussed multiple options for this including starting an H2 or PPI. Patient was reluctant to start a new medication. She can continue Imodium as needed and should start supplementing with a meal supplement. We will reevaluate this when she returns in one month. Ordered: Office Visit Level 4 New 79109 Orders: lidocaine topical, 1 patches, Topical, Daily, # 30 patches, 0 Refill(s ), Pharmacy: [facility] [id number]
--- OUTSIDE RECORDS SUMMARY | 2016-07-25 10:10 | XMS REPORT | Referral Summary ---
Author Author [facility] Organization [facility] Address Unknown Phone Unavailable Care Team Providers Care Inventory Audit Clerk Name Role Phone Vladislav Fisher Primary Care Physician [phone] Encounter [facility] [id number] Date(s): 05/26/15 - 05/26/15 [facility] [address] [place], [place] [address] Discharge Diagnosis: Primary biliary cirrhosis Discharge Diagnosis: Weight loss, unintentional Discharge Diagnosis: Diarrhea Discharge Disposition: 01-Home or Self Care Attending Physician: Clarisa Bajwa III, MD Admitting Physician: Clarisa Bajwa III, MD Vital Signs Most recent to 1 oldest [Reference Range]: Peripheral Pulse 60 bpm Rate [60-100 bpm] (05/26/15 2:19 PM) Blood Pressure 135/75 mmHg [90-140/60-90 mmHg] (05/26/15 2:19 PM) Problem List Condition Effective Dates Status [...] BID, # 180 tabs, 3 Refill(s), Pharmacy: [facility] [id number], 1 tabs Oral BID Start Date: 02/05/15 Status: Ordered digoxin 125 mcg (0.125 mg) oral tablet 125 mcg 1 tabs, Oral, Daily, # 30 tabs, 0 Refill(s) Start Date: 01/26/15 Status: Ordered nystatin 100,000 units/g topical cream 1 janel, Topical, BID, # 30 g, 1 Refill(s), [id number] Start Date: 05/26/15 Status: Ordered ursodiol 250 mg oral tablet 250 mg 1 tabs, Oral, BID, with food, # 270 tabs, 3 Refill(s), Pharmacy: [facility] [id number], 1 tabs Oral TID,Instr:with food Start Date: 02/05/15 Status: Ordered warfarin 2.5 mg oral tablet See Instructions, as directed, 0 Refill(s) Start Date: 01/26/15 Status: Ordered Results Chemistry Most recent to 1 oldest [Reference Range]: Sodium Lvl [135-144 144 mEq/L mEq/L] (05/26/15 3:30 PM) Potassium Lvl 4.3 mEq/L [3.5-5.2 mEq/L] (05/26/15 3:30 PM) Chloride [99-111 106 mEq/L mEq/L] (05/26/15 3:30 PM) CO2 [22-31 mEq/L] 30 mEq/L (05/26/15 3:30 PM) AGAP [3-20] 8 (05/26/15 3:30 PM) BUN [10-20 mg/dL] 11 mg/dL (05/26/15 3:30 PM) Glucose Lvl [70-99 90 mg/dL mg/dL] (05/26/15 3:30 PM) Creatinine Lvl 0.76 mg/dL [0.57-1.11 mg/dL] (05/26/15 3:30 PM) eGFR [>60 mL/min] >60 mL/min 1 (05/26/15 3:30 PM) Calcium Lvl 9.4 mg/dL [8.9-10.5 mg/dL] (05/26/15 3:30 PM) 1Result Comment: Multiply eGFR results by 1.21 for race. Immunizations No data available for this section Procedures Procedure Date Related Diagnosis Body Site Biopsy of liver Cataract extraction Pacemaker Tonsillectomy and adenoidectomy Social History Social History Type Response Smoking Status Never smoker Assessment and Plan Extracted from: Title: Office Visit Note Author: Clarisa Bajwa III, MD Date: 05/26/15 Assessment/Plan Primary biliary cirrhosis Continue ursodiol, order CT scan of abdomen to evaluate for weight loss. If diarrhea continues will need to perform EGD with biopsy and colonoscopy with biopsy. She is on warfarin so we have to stop this even in light of her atrial fibrillation and take the risk. I'm not proposing that yet but rather proceeding with imaging. She'll try Imodium for diarrheaLactaid can helpdigest milk productsand I'll see her shortly after the CT scan is done Ordered: Tissue Transglutaminase Ab IgA, IgG-Aguirre Tissue Transglutaminase Ab, IgG-Aguirre Weight loss, unintentional Ordered: CT Abdomen w/ + w/o Pelvis w/ + w/o Cont Tissue Transglutaminase Ab IgA, IgG-Aguirre Orders: nystatin topical, 1 janel, Topical, BID, # 30 g, 1 Refill(s), Pharmacy: [facility] #[id number] Basic Metabolic Panel
--- OUTSIDE RECORDS SUMMARY | 2016-07-25 10:10 | XMS REPORT | Referral Summary ---
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 Discharge Disposition: 01-Home or Self Care Attending Physician: Jaclyn Fisher DO Admitting Physician: Jaclyn Fisher DO Vital Signs Most recent to 1 oldest [Reference Range]: Temperature Tympanic 36.6 degC [36.6-38.1 degC] (01/27/16 9:52 AM) Peripheral Pulse 61 bpm Rate [60-100 bpm] (01/27/16 9:52 AM) Respiratory Rate 16 br/min [14-20 br/min] (01/27/16 9:52 AM) Blood Pressure 104/60 mmHg [90-140/60-90 mmHg] (01/27/16 9:52 AM) SpO2 97 % (01/27/16 9:52 AM) Problem List Condition Effective Dates Status [...] day), # 30 tabs, 0 Refill(s), Pharmacy: [facility] #[id number], 1 tabs Oral Bedtime (once a day) Start Date: 12/30/15 Status: Ordered atenolol 25 mg oral tablet 25 mg 1 tabs, Oral, BID, # 180 tabs, 1 Refill(s), Pharmacy: [facility] # [id number], 1 tabs Oral BID Start Date: 08/31/15 Status: Ordered digoxin 125 mcg (0.125 mg) oral tablet 125 mcg 1 tabs, Oral, Daily, # 90 tabs, 1 Refill(s), Pharmacy: [facility] #[id number], 1 tabs Oral Daily Start Date: 08/31/15 Status: Ordered nystatin 100,000 units/g topical cream 1 janel, Topical, BID, # 30 g, 1 Refill(s), Pharmacy: [facility] #[id number] Start Date: 05/26/15 Status: Ordered ursodiol 250 mg oral tablet 250 mg 1 tabs, Oral, BID, with food, # 270 tabs, 3 Refill(s), Pharmacy: [facility] [id number], 1 tabs Oral TID,Instr:with food Start Date: 02/05/15 Status: Ordered warfarin 2.5 mg oral tablet 2.5 mg 1 tabs, Oral, Daily, # 30 tabs, 6 Refill(s), Pharmacy: [facility] # [id number], 1 tabs Oral Daily Start Date: 08/03/15 Status: Ordered Wheelchair (DME) DME Item wheelchair/daily/lifetime, See Instructions, # 1 Each, 0 Refill(s), Supply Start Date: 01/27/16 Status: Ordered Results Coagulation Most recent to 1 oldest [Reference Range]: PT Venous (01/27/16 10:42 AM) INR [0.8-1.2] 3.3 1 *HI* (01/27/16 10:42 AM) 1Result Comment: Normal (no anticoagulant): 0.8 - 1.2 Units Routine Therapeutic Range: 2.0 - 3.0 Units High Risk Therapeutic Range: 2.5 - 3.5 Units Chemistry Most recent to 1 oldest [Reference Range]: Albumin Lvl [3.4-4.8 3.9 gm/dL gm/dL] (01/27/16 10:42 AM) Total Protein 6.9 gm/dL [6.0-7.6 gm/dL] (01/27/16 10:42 AM) ALT [0-55 U/L] 8 U/L (01/27/16 10:42 AM) AST [5-34 U/L] 18 U/L (01/27/16 10:42 AM) Alk Phos [40-150 111 U/L U/L] (01/27/16 10:42 AM) Bili Total [0.2-1.2 0.9 mg/dL mg/dL] (01/27/16 10:42 AM) Bili Direct [0.0-0.5 0.4 mg/dL mg/dL] (01/27/16 10:42 AM) Bili Indirect 0.5 mg/dL [0.0-1.0 mg/dL] (01/27/16 10:42 AM) Immunizations Vaccine Date Refusal Reason influenza virus vaccine, inactivated 12/30/15 pneumococcal 13-valent conjugate vaccine 12/30/15 Procedures Procedure Date Related Diagnosis Body Site Biopsy of liver Cataract extraction Pacemaker Tonsillectomy and adenoidectomy Social History Social History Type Response Smoking Status Never smoker Assessment and Plan Extracted from: Title: WC F2F Author: Jaclyn Fisher DO Date: 01/27/16 Assessment/Plan Acquired dysplasia of left hip Ordered: Durable Medical Equipment Rx, DME Item wheelchair/daily/lifetime, See Instructions, # 1 Each, 0 Refill(s), Supply Office Visit Level 3 Est 61052 Anticoagulant long-term use Ordered: PT Impaired gait and mobility Ordered: Office Visit Level 3 Est 76206 Medication monitoring encounter OA (osteoarthritis) Ordered: Durable Medical Equipment Rx, DME Item wheelchair/daily/lifetime, See Instructions, # 1 Each, 0 Refill(s), Supply Office Visit Level 3 Est 25362 Due to patient'ship dysplasia as well as osteoarthritis and her subsequent gait instability is medically necessary the patient have a wheelchair for any mobility outside of the home.
--- OUTSIDE RECORDS SUMMARY | 2016-07-25 10:10 | XMS REPORT | Referral Summary ---
Author Author [facility], Family [facility] Organization [facility] Address Unknown Phone Unavailable Care Team Providers Care Wig Dresser Name Role Phone Vladislav Fisher Primary Care Physician [phone] Encounter Date(s): 03/11/15 - 03/11/15 [facility], [address] [place] [phone] Discharge Diagnosis: Left ear pain Discharge Disposition: 01-Home or Self Care Attending Physician: Oral Barboza APRN Admitting Physician: Oral Barboza APRN Vital Signs Most recent to 1 oldest [Reference Range]: Temperature Tympanic 36.4 degC [36.6-38.1 degC] *LOW* (03/11/15 9:31 AM) Peripheral Pulse 63 bpm Rate [60-100 bpm] (03/11/15 9:31 AM) Blood Pressure 148/84 mmHg [90-140/60-90 mmHg] *HI* (03/11/15 9:31 AM) SpO2 95 % (03/11/15 9:31 AM) Problem List Condition Effective Dates Status [...] BID, # 180 tabs, 3 Refill(s), Pharmacy: [facility] [id number], 1 tabs Oral BID Start Date: 02/05/15 Status: Ordered digoxin 125 mcg (0.125 mg) oral tablet 125 mcg 1 tabs, Oral, Daily, # 30 tabs, 0 Refill(s) Start Date: 01/26/15 Status: Ordered ursodiol 250 mg oral tablet 250 mg 1 tabs, Oral, TID, with food, # 270 tabs, 3 Refill(s), Pharmacy: [facility] [id number], 1 tabs Oral TID,Instr:with food Start Date: [...]
--- NOTE | 2016-07-25 10:37 | ERPDOC ---
Departure Disposition Decision Date: Jul 25, 2016 Disposition Decision Time: 12:42 Disposition: 01 DISCHARGED HOME, SELF-CARE Impression Impression Impression: Primary Impression: Dizziness Severity: Moderate Condition: Improved Seen By: Physician only Patient Instructions: Dizziness (ED) Problems/Meds/Labs Reviewed?: Yes Medications reviewed and manag: Yes Additional Instructions: If scopolamine patch will last for 3 days, follow-up with her primary medical physician for further evaluation Follow up care ordered?: Yes Mental Status: Alert, Oriented HPI - CVA/Neuro General Chief Complaint: Neuro Symptoms/Deficits Stated Complaint: DIZZINESS, UNCOORDINATED Time Seen by Provider: 10:37 Source: patient, family Exam Limitations: no limitations HPI - CVA/NEURO Initial Comments Patient is an 89-year-old female presents emergency room for evaluation of dizziness. Patient has been having appetite difficulties was started recently on 2 medications for increasing her appetite. After starting the medications patient has been consistently dizzy now for approximately 7 days. Patient states she is dizzy every day does have a little bit of a problem with walking, has not fallen has not hit her head. Patient also has recently finished antibiotic for urinary tract infection. Patient continuing to complain of dizziness so patient decided to be brought to the ER today for evaluation. Allergies: Coded Allergies: No Known Allergies (Unverified , 07/25/16) Past History Past Medical History Metabolic: cancer (breast), hypertension Cardiac: A-fib, CAD, CHF, [place] Musculoskeletal: osteoarthritis Psychological: dementia, depression Surgical History General: exploratory laparotomy (lysis of adhesions) Social History Smoking Status: Never smoker Substance Use Type: does not use Alcohol Intake: none Review of Systems Constitutional Constitutional: appetite decrease, dizziness, weakness, DENIES: chills, fever Eyes Vision: DENIES: double vision, loss of visual grissom ENMT Sinuses: DENIES: congestion, rhinorrhea Mouth/Throat: DENIES: scratchy throat, sore throat Cardiovascular Cardiac: DENIES: chest pain, dyspnea on exertion Pulmonary Respiratory: DENIES: cough, dyspnea, sputum, tachypnea GI Upper Abdomen: DENIES: nausea, pain, vomiting Lower Abdomen: DENIES: constipation, diarrhea, pain General: DENIES: frequency, urgency Musculoskeletal General: DENIES: cramps, pain, weakness Integumentary Skin: DENIES: color change, itching, rash Neurological General: DENIES: change in strength, headache, numbness, weakness Endocrine Endocrine: DENIES: heat/cold intolerance Hematologic/Lymphatic Hematologic/Lymphatic: DENIES: anemia Physical Exam General General Nourishment: well nourished, well developed General Body Habitus: well groomed Vitals and Pain First Documented Vital Signs Date Time Temp Pulse Resp B/P Pulse Ox O2 Delivery O2 Flow Rate FiO2 07/25/16 10:05 97.7 60 20 161/75 94 Room Air Weight: Kilograms: 54.100 Height (feet): 5 Height (inches): 4.00 Triage Pain Scale: RN VS reviewed by Provider: Yes Eyes (brief) Eyes Brief: found: EOMI, PERRL ENMT (brief) ENMT Brief: FOUND: TM clear, TM good light reflex, ear canals clear, mucosa moist, normal dentition, NOT FOUND: nasal erythema, nasal exudate, nasal swelling, pharnyx erythema, tonsillar deviation Neck (brief) Neck: NOT FOUND: adenopathy, spasm, tenderness Respiratory (brief) Respiratory: FOUND: clear all grissom, equal bilaterally, NOT FOUND: rales, wheezes Cardiovascular (brief) Cardiac: FOUND: regular rate, regular rhythm Capillary Refill: <2 sec Abdomen (brief) Abdominal Brief: FOUND: bowel normo active x4, soft, NOT FOUND: distended, tender Lymphatic (brief) Lymphatic Brief: NOT FOUND: adenopathy Musculoskeletal (brief) Musculoskeletal Brief: NOT FOUND: spasm, tenderness Integumentary (brief) Integumentary Brief: FOUND: dry, pink, warm, NOT FOUND: rash Neurologic Mental Status: FOUND: alert, oriented GCS Adult : GCS Eye Opening: (4)Spontaneous GCS Verbal: (5)Oriented GCS Motor: (6)Obeys Commands GCS Total: 15 Cranial Nerves: FOUND: other (cranial nerves II through XII intact) Motor #1: Motor Side: bilateral Motor Location: biceps, triceps, wrist, finger extensors, finger flexors, clay miller strength Motor Degree: 5 Motor #2: Motor Side: bilateral Motor Location: quadriceps, hamstring, foot extension, foot flexion Motor Degree: 4 (family states this is baseline) Sensation: FOUND: soft touch intact x4 ext DTR's : DTR Side: bilateral DTR Location: Biceps, Patellar DTR Grade: 2+ Psychiatric (brief) Psychiatric Brief: FOUND: alert, oriented Differential Diagnoses Considering: Thrombotic CVA, Hemorrhagic CVA, Encephalitis, Hypertensive Emergency, Hypo/hypercalcemia, Hypo/hyperglycemia, Hypo/hypernatremia, Hypothyroid, Medication Effect, Psychogenic, TIA Progress Results/Orders Orders Procedure Category Date Status Time Iv Lock (Ed Only) EDM 07/25/16 Transmitted 10:42 Cbc W/Auto LAB 07/25/16 Complete Diff-Reflex Manual 10:42 Cmp - Comprehensive LAB 07/25/16 Complete Metabolic 10:42 Troponin I W LAB 07/25/16 Complete Hemolysis Index 10:42 Ct Head W/O Contrast CT 07/25/16 Resulted 10:42 Normal Saline (Normal PHA 07/25/16 Complete Saline Iv) 10:45 Scopolamine Patch PHA 07/25/16 Complete (Transderm-Scop) 10:45 UA, LAB 07/25/16 Complete Dip&Micro(Complete) & 11:44 Lab Results Laboratory Tests Test 07/25/16 10:52 07/25/16 11:44 White Blood Count 5.5T/MM3 Red Blood Count 4.75M/MM3 Hemoglobin 14.4GM/DL Hematocrit 45.0% Mean Corpuscular Volume 94.7UM3 Mean Corpuscular Hemoglobin 30.3UUG Mean Corpuscular Hemoglobin Concent 32.0GM/DL RDW Standard Deviation 50.6FL Platelet Count 126T/MM3 Mean Platelet Volume 10.5UM3 Immature Granulocyte % (Auto) 0.0% Neutrophils (%) (Auto) 60.7% Lymphocytes (%) (Auto) 26.2% Monocytes (%) (Auto) 9.8% Eosinophils (%) (Auto) 2.9% Basophils (%) (Auto) 0.4% Absolute Immature Granulocyte (auto 0.00T/MM3 Absolute Neutrophils (auto) 3.3T/MM3 Absolute Lymphocytes (auto) 1.4T/MM3 Absolute Monocytes (auto) 0.5T/MM3 Absolute Eosinophils (auto) 0.2T/MM3 Absolute Basophils (auto) 0.0T/MM3 Turbidity < 20 Sodium Level 149MEQ/L Potassium Level 3.8MEQ/L Chloride Level 109MEQ/L Carbon Dioxide Level 28MEQ/L Anion Gap 12MEQ/L Blood Urea Nitrogen 19.0MG/DL Creatinine 0.8MG/DL Glomerular Filtration Rate Calc 68 BUN/Creatinine Ratio 24RATIO Glucose Level 104MG/DL Calculated Osmolality 288MOSM/KG Calcium Level 9.1MG/DL Total Bilirubin 1.10MG/DL Icterus Index < 2 Aspartate Amino Transf (AST/SGOT) 26U/L Alanine Aminotransferase (ALT/SGPT) 23U/L Alkaline Phosphatase 92U/L Troponin I < 0.012ng/ml Total Protein 6.9G/DL Albumin 3.7G/DL Globulin 3.2G/DL Albumin/Globulin Ratio 1.2RATIO Chemistry Specimen Hemolysis < 15 Urine Collection Type Voided-not cc-midstr Urine Color Yellow Urine Turbidity Clear Urine pH 5.0 Urine Specific [employer] 1.020 Urine Protein Negative Urine Glucose (UA) Negative Urine Ketones Negative Urine Blood 1+ Urine Nitrite Negative Urine Bilirubin Negative Urine Urobilinogen 0.2EU/DL Urine Leukocyte Esterase Negative Urine RBC 1-3/HPF Urine WBC 0-1/HPF Urine Squamous Epithelial Cells 5-10 Urine Bacteria 1+ Urine Mucus Present Urine Culture Indicated Cult not indicated Medications Current ED Medications Sodium Chloride (Normal Saline IV) 1,000 ml @ 999 mls/hr Q1H1M ONCE IV Last administered on 07/25/16 10:55; Start 07/25/16 at 10:45; Stop 07/25/16 at 11:45 ; Status DC Scopolamine HBr (Transderm-Scop) 1.5 mg Q3D ONCE TD Last administered on 11:00; Start 07/25/16 at 10:45; Stop 07/25/16 at 10:46; Status DC Progress Progress Patient's dizziness is markedly improved with meclizine, have reviewed patient' s new medications dizziness is a common side effect. Patient's laboratories are noncontributory, have discussed with patient and family they are very desirous of taking patient home. We'll discharge patient home at this time, continue to wear scopolamine patch which will last for another 48 hours, follow- up with primary medical physician for further evaluation. CT CT : CT: Head no contrast Interpretation: Normal, Reviewed Written Report ROLAND LINDER MD Jul 25, 2016 10:37
[2016-07-25] MEDS ORDERED: URSO250T11 PO (10:41)
[2016-07-25] MEDS ORDERED: WARF2.5T73 PO (10:41)
[2016-07-25] MEDS ORDERED: DONE10TA30 PO (10:41)
[2016-07-25] MEDS ORDERED: MIRT7.5T11 PO (10:41)
[2016-07-25] MEDS ORDERED: RANI150C4 PO (10:41)
[2016-07-25] MEDS ORDERED: DIGO125T88 PO (10:41)
[2016-07-25] MEDS ORDERED: CEPH-582 PO (10:41)
[2016-07-25] MEDS ORDERED: HYDR-4246 PO (10:41)
[2016-07-25] MEDS ORDERED: ATEN25TA PO (10:41)
[2016-07-25] MEDS ORDERED: NORMAL SALINE 1,000 ML IV ONE (10:45)
[2016-07-25] MEDS ORDERED: SCOPOLAMINE 1.5 MG PATCH TD ONE (10:45)
--- NOTE | 2016-07-25 10:50 | NUR ---
IVL IV LOCK STARTED ON FIRST ATTEMPT AND BLOOD DRAWN FOR LAB.
--- NOTE | 2016-07-25 10:55 | NUR ---
IV FLUIDS IV FLUID BOLUS STARTED.
--- NOTE | 2016-07-25 11:00 | NUR ---
CT PT. TO CT PER CART.
[2016-07-25 11:01] LABS: BASOPHILS % (AUTO) 0.4 % (0-2); EOSINOPHILS # (AUTO) 0.2 T/MM3 (0-0.5); EOSINOPHILS % (AUTO) 2.9 % (0-4); HGB - HEMOGLOBIN 14.4 GM/DL (12-16); LYMPHOCYTES # (AUTO) 1.4 T/MM3 (1-4.8); LYMPHOCYTES % (AUTO) 26.2 % (23-45); MEAN CORPUSCULAR HGB 30.3 UUG (26-34); MEAN CORPUSCULAR VOLUME 94.7 UM3 (80-100); MEAN PLATELET VOLUME 10.5 UM3 (9.4-12.4); MONOCYTES # (AUTO) 0.5 T/MM3 (0-0.8); MONOCYTES % (AUTO) 9.8 % (0-9.0); NEUTROPHILS #(AUTO)-ABSOLUTE 3.3 T/MM3 (1.8-7.7); NEUTROPHILS % (AUTO) 60.7 % (33-66); RED BLOOD COUNT 4.75 M/MM3 (4.00-5.20); WBC - WHITE BLOOD COUNT 5.5 T/MM3 (4.5-11.0)
[2016-07-25 11:10] LABS: ALBUMIN 3.7 G/DL (3.5-5.0); ALBUMIN/GLOBULIN RATIO 1.2 RATIO (1.1-2.2); ALKALINE PHOSPHATASE 92 U/L (38-126); ALT (SGPT) 23 U/L (9-52); ANION GAP 12 MEQ/L (5-15); AST (SGOT) 26 U/L (14-36); BUN/CREATININE RATIO 24 RATIO (6-26); CALCIUM 9.1 MG/DL (8.4-10.2); CHLORIDE 109 MEQ/L (98-107); CO2 - CARBON DIOXIDE 28 MEQ/L (22-30); CREATININE 0.8 MG/DL (0.7-1.2); GLOMERULAR FILTRATION RATE 68; GLUCOSE 104 MG/DL (65-110); POTASSIUM 3.8 MEQ/L (3.6-5); SODIUM 149 MEQ/L (134-144); TOTAL PROTEIN 6.9 G/DL (6.3-8.2)
--- NOTE | 2016-07-25 11:15 | NUR ---
CT PT. RETURNS FROM CT.
--- NOTE | 2016-07-25 11:38 | DI ---
Indication: ITS.REASON: dizziness, left-sided gait instability rule out stroke PROCEDURE: CT HEAD W/O CONTRAST: Encounter: Initial Comparison: None Technique: Axial CT images through the head were performed without contrast. Iterative Reconstruction dose reducing techniques was utilized. FINDINGS: The ventricles are seen prominent slightly out of proportion to the adjacent sulci. This may reflect atypical atrophy. Normal pressure hydrocephalus could have a similar appearance. There is mild periventricular white matter disease likely secondary to chronic small vessel ischemia. The brainstem, cerebellum, and cerebral hemispheres otherwise have a normal morphology and CT attenuation. There is no evidence of midline displacement. No hemorrhage, signs of acute territorial stroke, mass effect, mass lesions, or edema is evident. The visualized portions of the skull base, midface, and calvarium demonstrate no abnormality. The paranasal sinuses are well aerated and free of significant disease. The tympanic and mastoid cavities appear normal. IMPRESSION: Prominence of the ventricles slightly out of proportion to the adjacent sulci. This may reflect atypical cerebral atrophy though normal pressure hydrocephalus could have a similar appearance and clinical correlation is recommended. 2. No evidence for acute intracranial process or hemorrhage. 3. Mild periventricular white matter disease. .
[2016-07-25 11:54] LABS: BLOOD, URINE 1+ (NEGATIVE); COLOR,URINE YELLOW (YELLOW); LEUKOCYTE ESTERASE ,URINE NEGATIVE (NEGATIVE); NITRITE,URINE NEGATIVE (NEGATIVE); UROBILINOGEN,URINE 0.2 EU/DL (NORMAL)
[2016-07-25 12:05] LABS: WBC,URINE 0-1 /HPF (0-5)
[2016-07-25 12:06] LABS: BACTERIA,URINE 1+ (NEGATIVE); MUCUS,URINE PRESENT
--- NOTE | 2016-07-25 12:15 | NUR ---
STATUS IS DIFFICULT TO DETERMINE IF PT. STILL FEELS LIKE THINGS ARE TILTING BUT I AND SON BOTH THINK SHE IS STILL FEELING TILTED. PT. WAS ABLE TO WALK TO BATHROOM WITH MY HELP AND SON STATES THAT IS HER NORMAL WALK.
--- NOTE | 2016-07-25 12:50 | NUR ---
DISMISSAL NOTE DISMISSAL INSTRUCTIONS GIVEN TO PT. AND NO FURTHER QUESTIONS. SON IS COMFORTABLE WITH TAKING HER HOME. CONTINUES TO FEEL A LITTLE TILTED.PT. LEFT ED PER WHEELCHAIR WITH SON.
[2016-07-25 16:10] VITALS: BP 156/81; PULSE 60; RESP 20; O2SAT 93
== END 2016-07-25 12:50 | disposition home or self-care (01) ==
LOC: ED 10:04
DX: R42 Dizziness and giddiness (principal); I48.91 Unspecified atrial fibrillation; I11.0 Hypertensive heart disease with heart failure; I50.9 Heart failure, unspecified
CPT/HCPCS: 36415; 51701; 70450; 80053; 81001; 84484; 85025; 96360; 96361; 99284; A9270; J7030